=== PATIENT | male | born 1960 | race African-American/Black ===

== ENCOUNTER 2022-04-01 15:27 | Emergency (ER) | payer BC, MEDICAID ==
[~2022-04-01] VITALS: Ht 188 cm; Wt 100.0 kg
[2022-04-01 15:33] VITALS: BP 142/86
[2022-04-01] MEDS ORDERED: ONDANSETRON HCL 4MG/2ML INJ IV STA (15:42)
[2022-04-01] MEDS ORDERED: MECLIZINE 25MG TABLET PO ONE (15:45)
[2022-04-01] MEDS ORDERED: SODIUM CHLORIDE 0.9% 1,000 ML IV ONE ×2 (15:45→17:30)
[2022-04-01 16:36] LABS: BASOPHILS % 0.6 % (0.0-2.0); EOSINOPHILS % 1.1 % (0.0-5.0); HEMATOCRIT. 47.3 % (42.0-52.0); LYMPHOCYTES % 19.7 % (20.0-50.0); MEAN CORPUSCULAR HEMOGLOBIN 27.2 pg (28.0-32.0); MEAN CORPUSCULAR VOLUME 80.5 fL (80.0-94.0); MEAN PLATELET VOLUME 9.1 fl (7.4-10.4); MONOCYTES % 8.7 % (2.0-8.0); NEUTROPHILS % 69.9 % (40.0-76.0); PLATELET 146 x1000/uL (130-400); RED BLOOD CELL COUNT 5.87 mill/uL (4.7-6.1); RED CELL DISTRIBUTION WIDTH 13.6 % (11.6-14.6)
[2022-04-01 16:45] LABS: CHLORIDE 107 mEq/L (98-107)
[2022-04-01] MEDS ORDERED: DEXAMETHASONE 10 MG/ML VIAL IV ONE (17:45)
[2022-04-01] MEDS ORDERED: ONDA4TAB11 PO (20:26)
[2022-04-01] MEDS ORDERED: MECL-159 PO (20:26)
== END 2022-04-01 21:50 | disposition home or self-care (01) ==
LOC: ER 16:21
DX: R42 Dizziness and giddiness (principal); I10 Essential (primary) hypertension; R11.10 Vomiting, unspecified
CPT/HCPCS: 36415; 70450; 71045; 80053; 82962; 84484; 85025; 93005; 96361; 96374; 96375; 99285; J1100; J2405; J7030; J8597